=== PATIENT | male | born 1990 | race Caucasian/White ===

== ENCOUNTER → 2020-04-27 | Outpatient (CLI) | payer OTHER ==
--- NOTE | 2020-05-15 07:49 | REP ---
BILATERAL LOWER EXTREMITY DOPPLER ULTRASOUND CLINICAL: Venous insufficiency. Reflux disease. TECHNIQUE: Real-time godinez scale and color Doppler evaluation using linear high frequency transducer. FINDINGS: Evaluation of the bilateral lower extremity deep venous structures from the common femoral vein to the popliteal vein demonstrates normal compressibility, flow and wave patterns in response to respiration and augmentation without evidence for deep vein thrombosis bilaterally. The left lower extremity demonstrates reflux throughout the deep system, as well as reflux through the superficial system including the anterior accessory saphenous vein and the lesser saphenous vein. The proximal greater saphenous vein measures 3.2 mm in diameter with reflux duration 4.3 seconds. Mid saphenous vein measures 4.4 mm in diameter with reflux duration 3.5 seconds. Distal greater saphenous vein measures 4.4 mm in diameter with reflux duration 3.5 seconds. Lesser saphenous vein measures 4.8 mm in diameter with reflux duration 4.4 seconds. The right lower extremity demonstrates thrombosed greater saphenous vein from its origin to the level of the knee. Minimal reflux was noted through the right common femoral vein and proximal femoral vein. Minimal reflux was also noted in the right lesser saphenous vein. The distal right greater saphenous vein appears reconstituted in the proximal calf by collateral vessel from the anterior accessory and posterior communicating veins with reflux into the calf draining into multiple perforation vessels. Reflux was also noted through the right anterior accessory vein. IMPRESSION: 1. No evidence for deep vein thrombosis. 2. Significant reflux through the left lower extremity as described above. 3. Elements of reflux through the right lower extremity as described above with evidence for previously thrombosed proximal to distal greater saphenous vein to the level of the knee and associated subsequent downstream flow. MTDD
== END ==
LOC: M RAD 11:46
PROVIDERS: ATTEND Physician Assistant
DX: I87.2 Venous insufficiency (chronic) (peripheral) (principal); I83.813 Varicose veins of bilateral lower extremities with pain

== ENCOUNTER → 2020-05-15 | Outpatient (CLI) | payer OTHER ==
--- NOTE | 2020-05-23 09:37 | REP ---
BILATERAL LOWER EXTREMITY ARTERIAL DOPPLER ULTRASOUND HISTORY: Venous insufficiency. Pain in the right leg. Nicotine dependence. FINDINGS: Ankle-brachial indices are normal measured at 1.1 on the right and 1.3 on the left. Normal triphasic arterial Doppler waveforms are noted throughout the lower extremity arterial tree bilaterally. No evidence of stenosis or significant plaquing seen. Right lower extremity arterial Doppler velocity chart: Right CVA PSV 133 cm/s. Profunda 89. Proximal SFA 111. Mid SFA 108. Distal SFA 79. Popliteal 49. Proximal XU 63. Tibioperoneal trunk 62. Proximal CAFETERIA COUNTER ATTENDANT 46. Distal CAFETERIA COUNTER ATTENDANT 63. Distal XU 62. Left lower extremity arterial Doppler velocity chart: Left CVA PSV 105 cm/s. Profunda 68. Proximal SFA 86. Mid SFA 87. Distal SFA 72. Popliteal 52. Proximal XU 61. Tibioperoneal trunk 60. Proximal CAFETERIA COUNTER ATTENDANT 56. Distal CAFETERIA COUNTER ATTENDANT 63. Distal XU 61. MTDD
== END ==
LOC: M RAD 09:48
PROVIDERS: ATTEND Physician Assistant
DX: M79.606 Pain in leg, unspecified (principal); I87.2 Venous insufficiency (chronic) (peripheral); F17.210 Nicotine dependence, cigarettes, uncomplicated

== ENCOUNTER → 2020-08-28 | Outpatient (CLI) | payer OTHER ==
--- NOTE | 2020-08-30 10:44 | ECHO ---
DATE OF PROCEDURE: 08/28/2020 Age: 30 Gender: Male Height: 185 cm Weight: 129 kg REFERRING PHYSICIAN: Odilon Cesar M.D. INDICATION: Premature ventricular depolarizations. MEASUREMENTS: 2D Measurements: Intraventricular septum 1.0 cm Posterior wall 0.96 cm Left ventricle diastole 6.3 cm Aortic root 3.1 cm Left atrium 4.2 cm Left atrial volume index 19 cm Inferior vena cava 2.3 cm with normal respiratory variation Doppler Measurements: No aortic stenosis No aortic regurgitation Aortic valve velocity 131 cm/s LVOT velocity 98.6 cm/s Trace mitral regurgitation Mitral E velocity 79.7 cm/s Mitral A velocity 50.1 cm/s Mitral deceleration time 240 msec Mild tricuspid regurgitation Estimated right ventricular systolic pressure 28-33 mmHg Estimated right atrial pressure 5-10 mmHg No pulmonic regurgitation MITRAL ANNULAR TISSUE DOPPLER E prime septal 10.6 cm/s, E prime lateral 17.8 cm/s DESCRIPTION: Rhythm was sinus. Image quality was fair. No pericardial effusion. This was a 2D, M-mode, color flow Doppler, and pulsed wave Doppler examination including mitral annular tissue Doppler. CONCLUSIONS: 1. Mildly dilated left ventricle at end-diastole. Normal LV wall thickness. Normal regional LV wall motion and wall thickening. LV systolic function near the lower limits of normal with LVEF estimated to be 50% - 55% by visual assessment. Normal LV diastolic function. 2. Otherwise normal appearing echocardiogram Doppler findings. MTDD
== END ==
LOC: M CARPUL 09:03
PROVIDERS: ATTEND Internal Medicine
DX: Z13.6 Encounter for screening for cardiovascular disorders (principal)